=== PATIENT | female | born 1970 | race Caucasian/White ===

== ENCOUNTER 2018-07-18 08:19 | Day surgery (SDC) | payer BC ==
[2018-07-18] MEDS ORDERED: CEFAZOLIN/SWI 2gm 2 GM/20 ML SYR ONE (08:48)
[2018-07-18] MEDS ORDERED: Ringers Lactate 1,000 ML IV ONE (08:48)
[2018-07-18] MEDS ORDERED: LIDOCAINE 1% MPF 2 ML AMPULE ONE (10:44)
[2018-07-18] MEDS ORDERED: PROPOFOL 200 MG/20 ML VIAL IV ONE (10:44)
[2018-07-18] MEDS ORDERED: FENTANYL CITR 100 MCG/2 ML ONE (10:44)
[2018-07-18] MEDS ORDERED: MIDAZOLAM HCL 2 MG/2 ML INJ ONE (10:44)
[2018-07-18] MEDS ORDERED: KETOROLAC 30 MG/ML INJ ONE (11:41)
[2018-07-18] MEDS: FENTANYL CITR 100 MCG/2 ML ONE ×2 (11:50→12:19)
[2018-07-18] MEDS ORDERED: PROMETHAZINE 25 MG/ML VIAL ONE (12:07)
[2018-07-18] MEDS ORDERED: METOCLOPRAMIDE 10 MG/2mL INJ ONE (12:20)
[2018-07-18] MEDS ORDERED: HYDROCODONE/APAP 5/325 MG TAB PO ONE (13:45)
[2018-07-18] MEDS ORDERED: HYDROCODONE/APAP 5/325 MG TAB ONE (13:54)
--- NOTE | 2018-07-18 15:12 | OP ---
Date of Procedure: 07/18/2018 Surgeon: Bhumika Kent MD [employer] Supervisor: No assistance. Preoperative Diagnosis: Menorrhagia. Postoperative Diagnoses: Menorrhagia with polypoid endometrium. Procedures Performed: 1.Hysteroscopy, dilation and curettage. 2.Endometrial ablation with HTA. Anesthesia: General with LMA. Specimens: Endometrial curettings. Complications: None. Drains: None. Condition: Stable. Estimated Blood Loss: Minimal. Findings: Thickened endometrial wall, especially posterior one appeared very polypoid, significantly thickened, so plan was made to curette the wall prior to performing the ablation for a better ablati on effect. Procedure In Detail: After informed consent was verified, the patient was taken back to OR. Two gra ms of Ancef were given. She was placed in a dorsal lithotomy position after general anesthesia was g iven. Pelvic exam performed. Uterus anteflexed about 8-10 week size. Prep x3 with Betadine was don e. Anterior lip grasped with 2 Allis clamps. Diagnostic hysteroscopy was performed with the HTA she ath directly entering the cervical canal and traversing it through to enter the uterine cavity. The polypoid endometrium was seen as described above. No intracavitary lesions. Both tubal ostia were w ell visualized. Scope was removed. Curettings were performed with a large curette. Then, the cavit y cleaned out with the Chun forceps. Hysteroscopy was performed again to flush out the cavity. T hen endometrial ablation was started. After priming the sheath, the procedure was started. After the cavity integrity test was passed anterior Allis was fixed onto the HTA sheath. Two Ray-Selene s were packed in the posterior fornix. Then, the ablation cycle was started. The entire heating cyc le 10 minute ablation cycle and 1.5 minute cooling cycle were conducted without any interruption. Th ere was excellent ablation effect after the procedure was completed. Diagnostic hysteroscopy was per formed at the end again to flush out the cavity as well as good visualization, pictures were taken. The Ray-Tecs were removed. The instruments were removed. Instrument, needle, and sponge counts were done and were correct at the end of the case. The patient tolerated the procedure well. She will f ollow up with me in 3 weeks postop. STEFF/KANG Voice ID: [id number] Report ID: [id number]
== END 2018-07-18 14:12 | disposition home or self-care (01) ==
LOC: OR 08:19
PROVIDERS: ATTEND Obstetrics & Gynecology
PROC: 0U5B8ZZ Destruction of Endometrium, Via Natural or Artificial Opening Endoscopic (ICD-10-PCS; principal; 2018-07-18 10:30)
PROC: 0UDB7ZX Extraction of Endometrium, Via Natural or Artificial Opening, Diagnostic (ICD-10-PCS; 2018-07-18 10:30)
DX: N84.0 Polyp of corpus uteri (principal); N92.0 Excessive and frequent menstruation with regular cycle
CPT/HCPCS: 81025; 88305; J0690; J2001; J2250; J2550; J2704; J2765; J3010

== ENCOUNTER 2021-08-05 07:42 | Day surgery (SDC) | payer BC ==
[2021-08-05] MEDS ORDERED: Ringers Lactate 1,000 ML IV ONE (08:30)
[2021-08-05] MEDS ORDERED: LIDOCAINE 1% MPF 5 ML VIAL ONE (13:08)
[2021-08-05] MEDS ORDERED: propofoL 200 MG/20 ML VIAL IV ONE ×3 (13:08→13:28)
--- NOTE | 2021-08-05 13:29 | ENDO RPT ---
[address], [address] COLONOSCOPY PROCEDURE REPORT EXAM DATE: 08/05/2021 PATIENT NAME: Pebbles Tony MR #: [id number] BIRTHDATE: 1970 ATTENDING: Hany Melgar DR STATUS: outpatient STORAGE WORKER: Alie Finley RN and Kiet Peters [facility] INDICATIONS: The patient is a 50 yr old Female here for a colonoscopy due to colon cancer screening PROCEDURE PERFORMED: Colonoscopy with biopsy - cold polypectomy MEDICATIONS: Per Anesthesia. ESTIMATED BLOOD LOSS: None CONSENT: The patient understands the risks and benefits of the procedure and understands that these risks include, but are not limited to: sedation, allergic reaction, infection, perforation and/or bleeding. Alternative means of evaluation and treatment include, among others: physical exam, x-rays, and/or surgical intervention. The patient elects to proceed with this endoscopic procedure. DESCRIPTION OF PROCEDURE: During intra-op preparation period all mechanical medical equipment was checked for proper function. Hand hygiene and appropriate measures for infection prevention was taken. Procedure, possible complications, alternatives including, but not limited to possibility of bleeding, perforation, tear, infection, sepsis, need for surgery, need for blood transfusion, were explained to the patient. After the risks, benefits and alternatives of the procedure were thoroughly explained, Informed consent was verified, confirmed and timeout was successfully executed by the treatment team. The patient was placed in the left lateral position. A digital rectal exam was performed and revealed external hemorrhoids and A digital rectal exam was performed and revealed internal hemorrhoids. After appropriate level of anesthesia, the scope was passed. The EC-[id number] ([id number]) endoscope was introduced through the anus and advanced to the cecum, which was identified by both the appendix and ileocecal valve. The quality of the prep was fair. The instrument was then slowly withdrawn as the colon was fully examined. Scope withdrawal time was 8 minutes. COLON FINDINGS: Moderate sized internal and external hemorrhoids were found. A smooth semi-pedunculated polyp ranging between 3-5mm in size with a friable surface was found in the ascending colon. A polypectomy was performed with cold forceps. The resection was complete, the polyp tissue was completely retrieved and sent to histology. Retroflexed views revealed no abnormalities. The scope was then completely withdrawn from the patient and the procedure terminated. ADVERSE EVENTS: There were no complications. IMPRESSIONS: 1. Moderate sized internal and external hemorrhoids 2. Semi-pedunculated polyp ranging between 3-5mm in size was found in the ascending colon; polypectomy was performed in a piecemeal fashion with cold forceps RECOMMENDATIONS: 1. avoid NSAIDS for 2 weeks 2. await biopsy results 3. fiber rich diet 4. follow-up: office 2 week(s) 5. Monitor for any evidence of rectal bleeding. 6. continue surveillance 7. yearly hemoquant 8. hemorrhoidal hygiene 9. increase dietary water RECALL: for Colonoscopy, pending biopsy results. Hany Melgar DR eSigned: Hany Melgar DR 08/05/2021 1:28 PM cc: CPT CODES: ICD9 CODES: PATIENT NAME: Pebbles Tony MR#: [id number]
[2021-08-05] MEDS ORDERED: ALBUTEROL 2.5 MG/3 ML NEB SOL ONE (13:44)
[2021-08-05] MEDS ORDERED: NA CIT/CITRIC AC 30 ML ORAL UDC ONE (13:50)
[2021-08-05] MEDS ORDERED: ONDANSETRON 4 MG/2 ML VIAL ONE (13:54)
[2021-08-05 16:14] VITALS: TEMP 97.1
[2021-08-05 16:15] VITALS: BP 120/84
[2021-08-05 16:17] VITALS: O2SAT 95
== END 2021-08-05 15:21 | disposition home or self-care (01) ==
LOC: OR 07:42
PROVIDERS: ATTEND Surgery
PROC: 0DBK8ZX Excision of Ascending Colon, Via Natural or Artificial Opening Endoscopic, Diagnostic (ICD-10-PCS; principal; 2021-08-05 09:00)
DX: Z12.11 Encounter for screening for malignant neoplasm of colon (principal); D12.2 Benign neoplasm of ascending colon; Z20.822 Contact with and (suspected) exposure to COVID-19
CPT/HCPCS: 88305; 45380; U0003; J2704 ×3; J7120; J2405

== ENCOUNTER 2023-11-06 14:23 | Emergency (ER) | payer OTHER ==
--- OUTSIDE RECORDS SUMMARY | 2023-11-06 14:26 | XMS REPORT | Continuity of Care Document ---
Author Name Unknown Address [address] [facility] [address] [place] [address] [facility] Address [address] [facility] [address] [place] [address] Care Team Providers Care Special Deputy Sheriff Name Role Phone Pcp, Patient Does Not Have A Primary Care Physic gil JARVIS BUCKNER Attending Clinician Unavailable CHARLES SAGE Attending Clinician Unavailab MAUREEN Farrell Attending Clinician Unavaillindsay e LAB90 Attending Clinician Unavailable JOSE LEPE Attending Clinician Unava ilyeni Doctor Unassigned, [place] Attending Clinician U lucas Boyer RN, [place] Attending Clinician Unavailable Only, Ang Db Test Attending Clinician UnavailSue Strong MD Attending Clinician SUE BARRON Attending Clinician Unavailable Pob[facility], Acute Care Clinic Attending Clinician Unav Liset Cruz DO Attending Clinician [phone] LISET MARSHALL Attending Clinician Unavailable Payers Payer Name Policy Type Policy Number Effective Date Expirati on Date Source [facility] HELEN DONIS COPAY FOCUS 9 [id number] 2023 00:00:00 [employer] MP [employer]: HMO ON STANDARD 9 [id number] 2022 00:00:00 Problems Condition Name Condition Details Condition Category Status Onset Date Resolution Date Last Treatment Date Treating Clinician Comments Source Superficia l pain on intercours e Superficia l Pain on Intercours e Problem Active 10-03 00:00: 00 [facility] Essential hypertensi on Essential Hypertensi on Problem Active 10-03 00:00: 00 [facility] Female stress incontinen ce Female Stress Incontinen ce Problem Active 10-03 00:00: 00 [facility] Menopausal flushing Menopausal Flushing Problem Active 10-03 00:00: 00 [facility] Atrophic vaginitis Atrophic Vaginitis Problem Active 10-03 00:00: 00 [facility] Hypertensi on Hypertensi on Disease Active 10-10 00:00: 00 Alyssa Cooley - Externa l History of colon polyps History of colon polyps Disease Active 10-10 00:00: 00 Alyssa Cooley - Externa l Family history of colon cancer Family history of colon cancer Disease Active 2016-03 00:00: 00 Overview: Formattin g of this note might be different from the original. Added automatic ally from request for surgery [id number] [facility] Screening for colorectal cancer Screening for colorectal cancer Disease Active 2016-03 00:00: 00 Overview: Formattin g of this note might be different from the original. Added automatic ally from request for surgery [id number] [facility] Allergies, Adverse Reactions, Alerts Allergy Name Allergy Type Status Severity Reaction(s) Onset Date Inactive Date Treating Clinician Comments Source NO KNOWN ALLERGIE S Drug Class Active [facility] Social History Social Habit Start Date Stop Date Quantity Comments Source Gender identity 2022-09-27 12:13:21 Identifies as female gender (finding) Alyssa Cooley - External Exposure to SARS-CoV-2 (event) Yes [facility] Sexual orientation U [facility] History of tobacco use Cigarette Smoker Alyssa jiménez - External Education 2022-10-10 00:00:00 2022-10-10 00:00:00 21 Alyssa Cooley - External Alcohol Comment 2022-10-10 00:00:00 2022-10-10 00:00:00 rarely Alyssa Cooley - External Tobacco use and exposure 2022-10-10 00:00:00 2022-10-10 00:00:00 Smokeless tobacco non-user Alyssa Cooley - External Alcohol intake 2022-10-10 00:00:00 2022-10-10 00:00:00 .29 /d Alyssa Bailonsharontino - External History of Social function 2019-10-08 00:00:00 2019-10-08 00:00:00 [facility] Sex Assigned At 1970 00:00:00 1970 00:00:00 F Alyssa Bailonsharontino - External Smoking Status Start Date Stop Date Source Never Smoker [facility] Ex-smoker 2022-10-10 00:00:00 2022-10-10 00:00:00 Milena carmichael Sesharontino - External Medications Ordered Medication Name Filled Medication Name Start Date Stop Date Current Medication? Ordering Clinician Indication Dosage Frequency Signature (SIG) Comments Components Source azithromyci n 250 mg tablet 06-01 00:00: 00 Yes [facility] VENTOLIN HFA 90 mcg/actuati on inhaler 06-01 00:00: 00 Yes [facility] benzonatate 100 mg capsule 06-01 00:00: 00 Yes [facility] promethazin e-codeine 6.25-10 mg/5 mL syrup 06-01 00:00: 00 Yes [facility] candesartan 16 mg tablet TAKE 1 TABLET BY MOUTH EVERY DAY candesartan 16 mg tablet TAKE 1 TABLET BY MOUTH EVERY DAY No candesarta n 16 mg tablet TAKE 1 TABLET BY MOUTH EVERY DAY [facility] Medical Immunizations Ordered Immunization Name Filled Immunization Name Date Status Comments Source SARS-COV-2 COVID-19 PFIZER VACCINE 2020-07-03 00:00:00 Completed [facility] SARS-COV-2 COVID-19 PFIZER VACCINE 2020-07-03 00:00:00 Completed [facility] SARS-COV-2 COVID-19 PFIZER VACCINE 2020-07-03 00:00:00 Completed [facility] SARS-COV-2 COVID-19 PFIZER VACCINE 2020-07-03 00:00:00 Completed [facility] SARS-COV-2 COVID-19 PFIZER VACCINE 2020-07-03 00:00:00 Completed [facility] SARS-COV-2 COVID-19 PFIZER VACCINE 2020-06-12 00:00:00 Completed [facility] SARS-COV-2 COVID-19 PFIZER VACCINE 2020-06-12 00:00:00 Completed [facility] SARS-COV-2 COVID-19 PFIZER VACCINE 2020-06-12 00:00:00 Completed [facility] SARS-COV-2 COVID-19 PFIZER VACCINE 2020-06-12 00:00:00 Completed [facility] SARS-COV-2 COVID-19 PFIZER VACCINE 2020-06-12 00:00:00 Completed [facility] SARS-COV-2 COVID-19 PFIZER VACCINE Unknown Completed [facility] SARS-COV-2 COVID-19 PFIZER VACCINE Unknown Completed [facility] Vital Signs Vital Name Observation Time Observation Value Comments S ource Body Weight 2023-10-04 00:00:00 240 [lb_av] [facility] BMI (Body Mass Index) 2023-10-04 00:00:00 36.5 kg/m2 [facility] BP Diastolic 2023-10-04 00:00:00 108 mm[Hg] [facility] BP Systolic 2023-10-04 00:00:00 193 mm[Hg] [facility] Height 2023-10-04 00:00:00 68 [in_i] [facility] Systolic blood pressure 2022-10-10 15:42:00 142 mm[Hg] Alyssa Watson ld - External Diastolic blood pressure 2022-10-10 15:42:00 83 mm[Hg] Alyssa Watson ld - External Heart rate 2022-10-10 15:42:00 65 /min Sourav Cooley - External Body temperature 2022-10-10 15:42:00 36.61 Nini Alyssa Cooley - External Respiratory rate 2022-10-10 15:42:00 16 /min Alyssa Cooley - External Body height 2022-10-10 15:42:00 172.7 cm Katie Cooley - External Body weight 2022-10-10 15:42:00 109.77 kg Katie Cooley - External BMI 2022-10-10 15:42:00 36.80 kg/m2 Katie Cooley - External Oxygen saturation in Arterial blood by Pulse oximetry 2022-10-10 15:42:00 97 /min Alyssa Watson ld - External Systolic blood pressure 2019-06-02 19:38:00 154 mm[Hg] [facility] Diastolic blood pressure 2019-06-02 19:38:00 97 mm[Hg] [facility] Heart rate 2019-06-02 19:38:00 77 /min [facility] Body temperature 2019-06-02 19:38:00 36.67 Nini [facility] Respiratory rate 2019-06-02 19:38:00 19 /min [facility] Body height 2019-06-02 19:38:00 172.7 cm [facility] Body weight 2019-06-02 19:38:00 104.327 kg [facility] BMI 2019-06-02 19:38:00 34.97 kg/m2 [facility] Oxygen saturation in Arterial blood by Pulse oximetry 2019-06-02 19:38:00 97 /min [facility] Procedures Procedure Date / Time Performed Performing Clinicia n Source MAMMO, screening, digital, bilateral 2023-10-04 00:00:00 [facility] ASSIGNMENT OF BENEFITS 2020-10-27 23:45:54 Docto r Unassigned, [place] [facility] Encounters Start Date/Time End Date/Time Encounter Type Admission Type Attending Clinicians Care Facility Care Department Encounter ID Source 2023-10-11 00:00:00 2023-10-11 00:00:00 Outpatient JARVIS BUCKNER [id number] [facility] 2023-10-04 00:00:00 2023-10-04 00:00:00 NICK Vazquez: Vimal Ross, [address] [address], [place] [address] , Ph. [id number]* [id number] [facility] 2023-04-20 00:00:00 2023-04-20 00:00:00 Outpatient CHARLES SAGE ALYSSA [id number] [facility] 2022-10-20 14:00:00 2022-10-20 14:00:00 Outpatient MAUREEN HOLBROOK [id number] [facility] 2022-10-11 00:00:00 2022-10-11 00:00:00 Outpatient CHARLES SAGE ALYSSA [id number] [facility] 2022-10-10 11:50:00 2022-10-10 11:50:00 Outpatient LAB90 ALYSSA TORRES [id number] [facility] 2022-10-10 11:00:00 2022-10-10 11:00:00 Outpatient CHARLES SAGE ALYSSA [id number] [facility] 2022-06-27 13:30:00 2022-06-27 13:30:00 Outpatient SHERLEY JOSE ALYSSA ALYSSA [id number] [facility] 2021-02-18 00:00:00 2021-02-18 00:00:00 Patient Secure Msg Doctor Unassigned, [place] [facility] .114 [id number] [facility] 2020-10-29 00:00:00 2020-10-29 00:00:00 Letter (Out) Socorro Boyer [facility] 1..114 [id number] [facility] 2020-10-27 18:47:03 2020-10-27 19:02:03 Laboratory Only Only, Ang Kwesi Barron [facility] Lele?[facility] Office Building [id number] [facility] 2020-10-27 19:00:00 2020-10-27 19:00:00 Outpatient SUE OLIVIA [facility] [id number] [facility] 2020-10-27 00:00:00 2020-10-27 00:00:00 Orders Only Doctor Unassigned, [place] [facility] 1..840.114 [id number] [facility] 2020-07-03 17:30:00 2020-07-03 17:30:00 Outpatient [facility] [id number] [facility] 2020-06-12 16:55:00 2020-06-12 16:55:00 Outpatient [facility] [id number] [facility] 2020-06-12 10:15:00 2020-06-12 10:15:00 Outpatient [facility] [id number] [facility] 2019-06-02 14:21:46 2019-06-02 14:41:46 Urgent Care Pob1, Acute Care Clinic Liset Marshall [facility] 1..840.114 [id number] [facility] 2019-06-02 14:20:00 2019-06-02 14:20:00 Outpatient LISET ORELLANA [facility] [id number] [facility]
--- NOTE | 2023-11-06 15:30 | RAD REPORT ---
EXAM DESCRIPTION: RAD - Elbow Right 3 View - 11/06/2023 3:17 pm CLINICAL HISTORY: PAIN COMPARISON: <Comparisons> FINDINGS: No acute fracture or dislocation is seen. Small olecranon spur.
--- NOTE | 2023-11-06 15:33 | RAD REPORT ---
EXAM DESCRIPTION: CT - Head Brain Wo Cont - 11/06/2023 3:16 pm CLINICAL HISTORY: TRAUMA Fall, trauma, head injury COMPARISON: <Comparisons> TECHNIQUE: All CT scans are performed using dose optimization technique as appropriate and may inclu de automated exposure control or mA/KV adjustment according to patient size. FINDINGS: No intracranial hemorrhage, hydrocephalus or extra-axial fluid collection.No areas of brai n edema or evidence of midline shift. The paranasal sinuses and mastoids are clear. The calvarium is intact. IMPRESSION: No acute intracranial abnormality.
--- NOTE | 2023-11-06 15:49 | ER ---
Nurse's Notes [facility] Name: Pebbles Tony Age: 53 yrs Sex: Female : 1970 Arrival Date: 11/06/2023 Time: 14:23 Bed IW2 Private MD: Diagnosis: Fall on same level, unspecified;Unspecified injury of head, initial encounter;Pain in right elbow Presentation: 11/05 14:58 Chief complaint: Patient states: SLIPPED, FELL AND HIT HEAD ON [employer]. STATES db FELT DIZZY AFTER. Coronavirus screen: Client denies travel out of the [place] in the last 14 days. At this time, the client does not indicate any symptoms associated with coronavirus-19. Ebola Screen: Patient negative for fever greater than or equal to 101.5 degrees Fahrenheit, and additional compatible Ebola Virus Disease symptoms Patient denies exposure to infectious person. Patient denies travel to an Ebola-affected area in the 21 days before illness onset. No symptoms or risks identified at this time. Mechanism of Injury: resulted from a fall, slipped. Initial Sepsis Screen: Does the patient meet any 2 criteria? No. Patient's initial sepsis screen is negative. Does the patient have a suspected source of infection? No. Patient's initial sepsis screen is negative. Risk Assessment: Do you want to hurt yourself or someone else? Patient reports no desire to harm self or others. 14:58 Method Of Arrival: Ambulatory db 14:58 Acuity: MARIBEL 3 db Triage Assessment: 15:00 General: Appears in no apparent distress. comfortable, Behavior is calm, cooperative. db Pain: Complains of pain in back. Neuro: Level of Consciousness is awake, alert, obeys commands, Oriented to person, place, time, situation, Speech is normal. Neuro: Reports dizziness. Respiratory: Airway is patent Respiratory effort is even, unlabored, Respiratory pattern is regular, symmetrical. Musculoskeletal: Circulation, motion, and sensation intact. Capillary refill < 3 seconds, Reports pain in back. Historical: - Allergies: 15:01 No Known Allergies; db - PMHx: 15:01 Hypertensive disorder; db - PSHx: 15:02 NECK SURGERY; db 15:02 ABLATION; db - Immunization history:: Adult Immunizations unknown. - Infectious Disease History:: Denies. - Social history:: Smoking status: Patient denies any tobacco usage or history of. Screenin:[facility] ED Fall Risk Assessment (Adult) History of falling in the last 3 months, db including since admission No falls in past 3 months (0 pts) Confusion or Disorientation No (0 pts) Intoxicated or Sedated No (0 pts) Impaired Gait No (0 pts) Mobility Assist Device Used No (0 pt) Altered Elimination No (0 pt) Score/Fall Risk Level 0 - 2 = Low Risk Oriented to surroundings, Maintained a safe environment. Abuse screen: Denies threats or abuse. Denies injuries from another. Nutritional screening: No deficits noted. Tuberculosis screening: No symptoms or risk factors identified. Assessment: 16:10 Reassessment: Patient appears in no apparent distress at this time. Patient and/or db family updated on plan of care and expected duration. Pain level reassessed. Patient is alert, oriented x 3, equal unlabored respirations, skin warm/dry/pink. General: Appears in no apparent distress. comfortable, Behavior is calm, cooperative. Vital Signs: 14:58 BP 145 / 107; Pulse 66; Resp 18; Temp 98.2; Pulse Ox 99% on R/A; Weight 108.86 kg; db Height 5 ft. 8 in. ; 16:10 BP 153 / 90; Pulse 66; Resp 18; Temp 98.2; Pulse Ox 99% on R/A; db 14:58 Body Mass Index 36.49 (108.86 kg, 172.72 cm) db Charo Coma Score: 14:58 Eye Response: spontaneous(4). Motor Response: obeys commands(6). Verbal Response: db oriented(5). Total: 15. ED Course: 14:26 Patient arrived in ED. mg5 14:27 Cintia Page F[facility]-C [facility] kb 14:27 Joe Ware MD is Attending Physician. kb 15:00 Triage completed. db 15:00 Arm band placed on Patient placed in waiting room. db 15:17 CT Head Brain wo Cont In Process Unspecified. EDMS 15:19 Elbow Right 3 View XRAY In Process Unspecified. EDMS 16:10 Patient has correct armband on for positive identification. Bed in low position. Call db light in reach. Side rails up X 1. Provided Education on: DISCHARGE AND FOLLOWUP. 16:10 No provider procedures requiring assistance completed. Patient did not have IV access db during this emergency room visit. Administered Medications: 15:55 Drug: HYDROcodone-acetaminophen PO 5 mg-325 mg 1 tabs PO once Route: PO; db 16:09 Follow up: Response: No adverse reaction db 15:55 Drug: Ondansetron PO 4 mg PO once Route: PO; db 16:09 Follow up: Response: No adverse reaction db Medication: 16:10 VIS not applicable for this client. db Outcome: 15:48 Discharge ordered by MD. carrasco 16:10 Discharged to home ambulatory, with family, db 16:10 Condition: stable 16:10 Discharge instructions given to patient, family, Instructed on discharge instructions, follow up and referral plans. 16:12 Patient left the ED. db Signatures: Dispatcher [employer] EDCintia Valencia FNP-C FNP-Ayaka Young, RN RN Abeba Kerr mg5 Corrections: (The following items were deleted from the chart) 15:01 14:58 BP 145 / 107; Pulse 66bpm; Resp 18bpm; Pulse Ox 99% RA; Temp 98.2F; db db
--- NOTE | 2023-11-06 15:49 | EDPHYS ---
Physician Documentation [facility] [place] Name: Pebbles Tony Age: 53 yrs Sex: Female : 1970 Arrival Date: 11/06/2023 Time: 14:23 Bed IW2 Private MD: ED Physician Joe Ware HPI: 11/05 17:38 This 53 yrs old Female presents to ER via Ambulatory with complaints of Closed Head kb Injury-Adult, Fall Injury, Dizziness. 17:40 Pt is a 53 year old female who presents for headache, back and elbow pain after kb slipping in a parking lot on wet ground and falling backwards. Denies loc. Reports dizziness and nausea initially, but those have mostly resolved. 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 Historical: - Allergies: 15:01 No Known Allergies; db - PMHx: 15:01 Hypertensive disorder; db - PSHx: 15:02 NECK SURGERY; db 15:02 ABLATION; db - Immunization history:: Adult Immunizations unknown. - Infectious Disease History:: Denies. - Social history:: Smoking status: Patient denies any tobacco usage or history of. ROS: 17:38 Constitutional: As per HPI kb Exam: 17:38 Constitutional: This is a well developed, well nourished patient who is awake, alert, kb and in no acute distress. Head/Face: Normocephalic, atraumatic. Eyes: Pupils equal round and reactive to light, extra-ocular motions intact. Lids and lashes normal. Conjunctiva and sclera are non-icteric and not injected. Cornea within normal limits. Periorbital areas with no swelling, redness, or edema. ENT: Moist Mucous membranes Cardiovascular: Regular rate Respiratory: Respirations even and unlabored. No increased work of breathing. Talking in full sentences Skin: Warm, dry with normal turgor. Normal color. MS/ Extremity: Pulses equal, no cyanosis. Neurovascular intact. Full, normal range of motion. Neuro: Awake and alert, GCS 15, oriented to person, place, time, and situation. Moves all extremities. Normal gait. Vital Signs: 14:58 BP 145 / 107; Pulse 66; Resp 18; Temp 98.2; Pulse Ox 99% on R/A; Weight 108.86 kg; db Height 5 ft. 8 in. ; 16:10 BP 153 / 90; Pulse 66; Resp 18; Temp 98.2; Pulse Ox 99% on R/A; db 14:58 Body Mass Index 36.49 (108.86 kg, 172.72 cm) db Charo Coma Score: 14:58 Eye Response: spontaneous(4). Motor Response: obeys commands(6). Verbal Response: db oriented(5). Total: 15. MDM: 14:27 Patient medically screened. kb 17:38 Differential diagnosis: ICH, contusion, fracture. Data reviewed: vital signs, nurses kb notes. Test considered but Not performed: X-ray: x-ray t-spine and l-spine considered but pt has no bony tenderness to spine. Counseling: I had a detailed discussion with the patient and/or guardian regarding the historical points, exam findings, and any diagnostic results supporting the discharge/admit diagnosis, radiology results, the need for outpatient follow up, a family practitioner, to return to the emergency department if symptoms worsen or persist or if there are any questions or concerns that arise at home. 11/05 15:02 Order name: CT Head Brain wo Cont; Complete Time: 15:35 kb 11/05 15:02 Order name: Elbow Right 3 View XRAY; Complete Time: 15:31 kb Administered Medications: 15:55 Drug: HYDROcodone-acetaminophen PO 5 mg-325 mg 1 tabs PO once Route: PO; db 16:09 Follow up: Response: No adverse reaction db 15:55 Drug: Ondansetron PO 4 mg PO once Route: PO; db 16:09 Follow up: Response: No adverse reaction db Disposition Summary: 11/06/23 15:48 Discharge Ordered Notes: Location: Home kb Condition: Stable kb Diagnosis - Fall on same level, unspecified kb - Unspecified injury of head, initial encounter kb - Pain in right elbow kb Followup: kb - With: Emergency Department - When: As needed - Reason: Worsening of condition Followup: kb - With: Private Physician - When: 2 - 3 days - Reason: Recheck today's complaints, Continuance of care, Re-evaluation by your physician Discharge Instructions: - Discharge Summary Sheet kb - Musculoskeletal Pain kb - Head Injury, Adult, [id number] kb Forms: - Medication Reconciliation Form kb - Antibiotic Education kb - Prescription Opioid Use kb - Patient Portal Instructions kb - Leadership Thank You Letter kb Addendum: 11/11/2023 01:18 Co-signature as Attending Physician, Joe Ware MD I reviewed the patient's care r n provided by the Advanced Practice Provider and agree with the diagnosis and treatment plan. Signatures: Dispatcher [employer] Cintia Chaney, GAS PLUMBING INSPECTOR-C GAS PLUMBING INSPECTOR-Ckb Joe Ware MD MD rn Benton, Danielle, RN RN db Corrections: (The following items were deleted from the chart) 11/05 15:02 15:02 Elbow Right 3 View+[email or web address] ordered. ANALIA HELMS
[2023-11-06] MEDS ORDERED: HYDROCODONE/APAP 5/325 MG TAB ONE (16:06)
[2023-11-06] MEDS ORDERED: ONDANSETRON 4 MG (ODT) TAB ONE (16:06)
[2023-11-06 16:53] VITALS: TEMP 98.2; O2SAT 99
[2023-11-06 16:54] VITALS: BP 153/90
== END 2023-11-06 16:12 | disposition home or self-care (01) ==
LOC: ER 14:23
DX: S09.90XA Unspecified injury of head, initial encounter (principal); M25.521 Pain in right elbow; W18.30XA Fall on same level, unspecified, initial encounter
CPT/HCPCS: 70450; 73080; 99283; Q0162